=== PATIENT | male | born 1985 | race Caucasian/White ===

== ENCOUNTER 2020-05-28 08:40 | Emergency (ER) | payer OTHER ==
[2020-05-28 09:11] VITALS: TEMP 97.7
[2020-05-28] MEDS ORDERED: DIPH,PERTUS(ACELL)TETVAC-LF 0.5 ML VIAL IM ONE (09:22)
[2020-05-28] MEDS ORDERED: LIDOCAINE 1% INJ 10MG/ML (20 ML MDV) SQ ONE (09:22)
--- NOTE | 2020-05-28 09:25 | ED ---
Wound/Laceration HPI - General Chief Complaint: Wound/Laceration Stated Complaint: thumb lac Time Seen by Provider: 05/28/20 09:16 Source: patient Mode of arrival: ambulatory Limitations: no limitations - History of Present Illness Initial Comments: Patient is a 34-year-old male presenting to the emergency Department with complaints of a laceration to his left thumb. Patient states he was using a knife to cut open a bundle of wood when it slipped cutting the palmar aspect of his left distal thumb. Patient denies being on blood thinners, bleeding is controlled with a bandage. Patient does not remember his last tetanus vaccine. There are no further complaints at this time - Related Data Allergies Allergy/AdvReac Type Severity Reaction Status Date / Time No Known Allergies Allergy Verified 05/28/20 09:11 Review of Systems ROS Statement: Those systems with pertinent positive or pertinent negative responses have been documented in the HPI. ROS Other: All systems not noted in ROS Statement are negative. Past Medical History Past Medical History: No Reported History History of Any Multi-Drug Resistant Organisms: None Reported Past Surgical History: No Surgical Hx Reported Past Psychological History: No Psychological Hx Reported Smoking Status: Never smoker Past Alcohol Use History: Occasional Past Drug Use History: Marijuana General Exam - General Exam Comments Initial Comments: GENERAL: Patient is well-developed and well-nourished. Patient is nontoxic and in no acute distress. HEAD: Atraumatic, normocephalic. EYES: Pupils equal round and reactive to light, extraocular movements intact, sclera anicteric, conjunctiva are normal. Eyelids were unremarkable. ENT: Nares patent, oropharynx clear without exudates. Moist mucous membranes. NECK: Normal range of motion, supple without lymphadenopathy or JVD. LUNGS: Unlabored respirations. Breath sounds clear to auscultation bilaterally and equal. No wheezes rales or rhonchi. HEART: Regular rate and rhythm without murmurs, rubs or gallops. ABDOMEN: Soft, nontender, normoactive bowel sounds. No guarding, no rebound. No masses appreciated. : Deferred MUSCULOSKELETAL: Normal extremities with adequate strength and normal range of motion, no pitting or edema. No clubbing or cyanosis. NEUROLOGICAL: Patient is alert and oriented x 3. Motor and sensory are also intact. Normal speech, normal gait. PSYCH: Normal mood, normal affect. SKIN: Warm, Dry, normal turgor, no rashes . Patient has a 1.5 cm C-shaped laceration to the distal portion of the left thumb, palmar aspect. Limitations: no limitations Course Vital Signs 05/28/20 05/28/20 09:08 09:41 Temperature 97.7 F Pulse Rate 55 L 68 Respiratory 18 16 Rate Blood Pressure 127/77 107/60 O2 Sat by Pulse 100 97 Oximetry Procedures - Laceration Laceration #1 Consent Obtained: verbal consent Indication: laceration Site: other (Left distal thumb) Size (cm): 0 (1.5cm) Description: flap Depth: simple, single layer Anesthetic Used: lidocaine 1% Anesthesia Technique: local infiltration Amount (mls): 3 Pre-repair: irrigated extensively Type of Sutures: nylon Size of Sutures: 5-0 Number of Sutures: 3 Technique: simple, interrupted Complications: other (Patient had a brief syncopal episode after lidocaine was applied.) Patient Tolerated Procedure: well Medical Decision Making - Medical Decision Making Patient is a 34-year-old male here with a 1.5 cm C-shaped laceration to the distal left thumb, palmar aspect. He is not on blood thinners. I did recommend a tetanus shot to be updated today however patient declined. Patient's wound was cleaned, closed with 3, 5-0 sutures. After lidocaine was applied to the wound, patient had a brief syncopal episode. He was only out for a few seconds. His vital signs remained stable. Patient recovered well. He is drinking. Patient states his has happened in the past. Patient will have sutures removed in 7-10 days. He is stable for discharge. Patient's father is driving him home. Case discussed with Dr. Stewart. Disposition Clinical Impression: Laceration of left thumb, Syncope Disposition: HOME SELF-CARE Condition: Stable Instructions (If sedation given, give patient instructions): Care For Your Sti tches (ED) Additional Instructions: Please return to the Emergency Department if symptoms worsen or any other concerns. Deep thumb clean and dry. Cover while working. Stitches need to be removed in 7-10 days. Is patient prescribed a controlled substance at d/c from ED?: No Referrals: None,Stated [Primary Care Provider] - 1-2 days
[2020-05-28] MEDS ORDERED: BACITRACIN OINT 1 EACH PACKET TOPICAL ONE (09:29)
[2020-05-28 09:44] VITALS: BP 107/60; PULSE 68; RESP 16
== END 2020-05-28 10:10 | disposition home or self-care (01) ==
LOC: EC 08:40
DX: S61.012A Laceration without foreign body of left thumb without damage to nail, initial encounter (principal); R55 Syncope and collapse; W26.0XXA Contact with knife, initial encounter; Y93.89 Activity, other specified
CPT/HCPCS: 99282; 12001; J2001